=== PATIENT | female | born 1975 | race Caucasian/White ===

== ENCOUNTER 2020-10-29 10:32 | Outpatient (CLI) | payer OTHER | END 2020-10-29 10:33 | disposition home or self-care (01) | LOC: DTY/OP 10:32 | PROVIDERS: ATTEND Specialist | DX: Z01.818 Encounter for other preprocedural examination (principal); E66.01 Morbid (severe) obesity due to excess calories; K42.9 Umbilical hernia without obstruction or gangrene | CPT/HCPCS: 97802 ==

== ENCOUNTER 2025-01-20 08:31 | Outpatient (CLI) | payer BC, OTHER ==
[2025-01-20] MEDS ORDERED: Iopamidol 370 76% 100 ML VIAL ONE (08:46)
== END 2025-01-20 08:32 | disposition home or self-care (01) ==
LOC: CT 08:31
PROVIDERS: ATTEND Specialist
DX: K42.9 Umbilical hernia without obstruction or gangrene (principal); K43.9 Ventral hernia without obstruction or gangrene
CPT/HCPCS: 74177; Q9967